=== PATIENT | female | born 1990 | race Caucasian/White ===

== ENCOUNTER → 2021-10-17 03:49 | Outpatient (CLI) | payer BC, SELFPAY ==
[2021-10-17 14:18] LABS: Influenza Control Positive
[2021-10-18 22:39] LABS: SARS-CoV-2 RNA PCR Positive
== END ==
PROVIDERS: PCP Family Medicine; Visit Provider Family Medicine
DX: J06.9 Acute upper respiratory infection, unspecified (principal); U07.1 COVID-19
CPT/HCPCS: 87804; C9803; U0003; U0005

== ENCOUNTER 2022-10-31 10:15 | Emergency (ER) | payer BC, SELFPAY ==
--- NOTE | ~2022-10-31 | XR_ITS ---
EXAMINATION: XR wrist LT min 3V DATE: 10/31/2022 11:12 INDICATION: Distal left ulna pain. TECHNIQUE: 4 views of left wrist were obtained. COMPARISON: None. FINDINGS: Bone alignment is normal. No fracture. Joint spaces are normal. IMPRESSION: 1. Normal left wrist. Reviewed, dictated and finalized at location A. CARE MANAGER IMPRESSION: 1. Normal left wrist.
[2022-10-31 10:24] VITALS: BP 136/86; PULSE 82; RESP 18; TEMP 37.6; O2SAT 100
--- NOTE | 2022-10-31 10:27 | ED.UPPEXIN ---
HPI - Extremity Injury (Upper) General Chief Complaint: Extremity Injury, Upper <Rona Segundo NP - Last Filed: 10/31/22 12:00> Stated Complaint: Left Wrist Pain <Rona Segundo NP - Last Filed: 10/31/22 12:00> Time Seen by Provider: 10/31/22 10:28 <Rona Segundo NP - Last Filed: 10/31/22 12:00> Source: patient <Rona Segundo NP - Last Filed: 10/31/22 12:00> Mode of arrival: ambulatory <ANU Pablo Last Filed: 10/31/22 12:00> Limitations: no limitations <Rona Segundo NP - Last Filed: 10/31/22 12:00> History of Present Illness HPI narrative: 32-year-old female presents with complaint of pain to left wrist since yesterday. Patient reports that while lifting a case of water out of her shopping cart into her car she felt a pop in her left wrist. Now reports pain with range of motion, such as brushing her hair, lifting anything. States with certain movement she has pain that shoots up into her left forearm. Range of motion and distal neurovascularly intact. All systems reviewed and negative except as noted above. <Rona Segundo NP - Last Filed: 10/31/22 12:00> Related Data Home Medications: Home Medications Medication Instructions Recorded Confirmed No Home Medications 10/31/22 10/31/22 <Rona Segundo NP - Last Filed: 10/31/22 12:00> Allergies/Adverse Reactions: Allergies Allergy/AdvReac Type Severity Reaction Status Date / Time latex Allergy Unknown UNKNOWN Verified 10/31/22 10:23 adhesive AdvReac Unknown IRRITATES Verified 10/31/22 10:23 SKIN,SMALLAMOUNT OF SKIN PEELING Contrast Media Allergy Severe Hives Uncoded 10/31/22 10:23 <Rona Segundo NP - Last Filed: 10/31/22 12:00> Review of Systems Review of Systems: CONSTITUTIONAL: Denies fever, chills, or sweats. EYES: Denies visual changes, redness, or discharge. ENT: Denies rhinorrhea, congestion, sore throat, or otalgia. CARDIOVASCULAR: Denies chest pain, palpitations, or edema. RESPIRATORY: Denies cough or dyspnea. GASTROINTESTINAL: Denies abdominal pain, nausea, vomiting, or diarrhea. GENITOURINARY: Denies dysuria or hematuria. SKIN: Denies rash or itching. MUSCULOSKELETAL: Reports left wrist pain. NEUROLOGIC: Denies headache, numbness, or weakness. PSYCHIATRIC: Denies anxiety or depression. All other systems reviewed are negative, except as documented in HPI. <Rona Segundo NP - Last Filed: 10/31/22 12:00> COUNTS INCLUDE 234 BEDS AT THE [facility] Past Medical History Medical History: Medical History (Updated 10/31/22 @ 11:28 by Moe Loyola, OVIDIO) Depression Encounter for HCV screening test for high risk patient Hep C positive, will screen her yearly, NEGATIVE 10/20/22 Frequency of urination [place] syndrome Migraine Migraine <Rona Segundo NP - Last Filed: 10/31/22 12:00> Surgical History Surgical History: Surgical History H/O exploratory laparotomy <Rona Segundo NP - Last Filed: 10/31/22 12:00> Family History Family History: Family History Mother Diabetes mellitus Depression Family history of bipolar disorder Hypertension Sibling Depression Father Hypertension Family history of elevated blood lipids Bile duct cancer Grandparent Family history of cardiovascular disease Cerebrovascular accident Family history of malignant neoplasm of breast in first degree relative Other JAYNE (obstructive sleep apnea) <Rona Segundo NP - Last Filed: 10/31/22 12:00> Social History Social History: Social History (Updated 09/23/22 @ 15:00 by Sofía Copeland [facility]) Smoking status: Never smoker Second hand tobacco smoke exposure: No Alcohol intake: current Alcohol use details: rare Substance use: never Substance use type: d
--- NOTE | 2022-10-31 10:35 | PC.NURSE ---
1035- RN to Rn report given to Felecia pt being sent Jesus for xray d/t no xray available here today.
== END 2022-10-31 11:33 | disposition home or self-care (01) ==
PROVIDERS: Emergency Provider Nurse Practitioner Family; PCP Family Medicine
DX: S63.502A Unspecified sprain of left wrist, initial encounter (principal); X50.0XXA Overexertion from strenuous movement or load, initial encounter; E80.4 Gilbert syndrome
CPT/HCPCS: 73110; 99213; G0463

== ENCOUNTER 2023-02-17 12:37 | Outpatient (CLI) | payer BC, SELFPAY ==
--- NOTE | ~2023-02-17 | XR_ITS ---
EXAM: XR abdomen/kub 1V DATE: 02/17/2023 12:59 HISTORY: R10.9 - Unspecified abdominal pain . COMPARISON: CT abdomen pelvis 06/27/2012. FINDINGS: Clear lung bases. Normal bowel gas pattern. No organomegaly. 3 mm calcification in the rig ht upper pole, associated with a simple cyst in the prior CT. Regional bones and soft tissues normal for age. IMPRESSION: No radiographic evidence of nephrolithiasis. Right upper pole simple renal cyst with altagracia pheral calcification. Reviewed, dictated and finalized at location K. IMPRESSION: No radiographic evidence of nephrolithiasis. Right upper pole simpl e renal cyst with peripheral calcification.
== END 2023-02-17 12:38 ==
LOC: MICIMG 12:40
PROVIDERS: PCP Physician Assistant; Visit Provider Physician Assistant
DX: R10.9 Unspecified abdominal pain (principal); N28.1 Cyst of kidney, acquired
CPT/HCPCS: 74018

== ENCOUNTER 2023-02-24 15:15 | Outpatient (CLI) | payer BC, SELFPAY ==
--- NOTE | ~2023-02-24 | CT_ITS ---
EXAMINATION: CT abdomen pelvis wo con DATE: 02/24/2023 15:30 INDICATION: Abdominal pain and bilateral flank pain. TECHNIQUE: Computed tomography (CT) of the abdomen and pelvis was performed without intravenous contr ast. Automated exposure control and iterative reconstruction technique were employed. The dose-length product was 1031.43 mGy-cm. COMPARISON: None FINDINGS: Lungs are clear. Heart size is normal. No pericardial or pleural effusion. Liver, gallbladder, spleen , pancreas, bilateral adrenal glands are normal. 1.5 cm cyst at a region of focal cortical scarring a t the upper pole of the right kidney. Additional small region of cortical scarring at the lower pole of the right kidney, both likely sequela of prior infection or infarction. 3 mm and 1 mm nonobstructi ng stones along the periphery of the cyst at the upper pole the right kidney. 1 mm nonobstructing sto ne at an upper pole calyx of the left kidney. No ureteral stones or hydronephrosis. Bladder is normal . Anteverted uterus and bilateral adnexa are unremarkable. Bowels including the appendix are normal. No free intraperitoneal gas or fluid. No pathologically enlarged abdominal or pelvic lymphadenopathy. Mild lumbar levocurvature. IMPRESSION: 1. Bilateral nonobstructing nephrolithiasis. Reviewed, dictated and finalized at location A.
== END 2023-02-24 15:16 ==
PROVIDERS: PCP Physician Assistant; Visit Provider Physician Assistant
DX: N20.0 Calculus of kidney (principal)
CPT/HCPCS: 74176

== ENCOUNTER 2025-06-02 13:01 | Emergency (ER) | payer OTHER, SELFPAY ==
--- NOTE | ~2025-06-02 | US_ITS ---
EXAMINATION: US OB <= 14 weeks fetus DATE: 06/02/2025 15:03 INDICATION: . Vaginal bleeding. TECHNIQUE: Real-time transabdominal and transvaginal obstetric ultrasound. FINDINGS: No prior studies for comparison. The uterus measures 8.4 x 5.1 x 6.5 cm. There is an intrauterine gestational sac, with pole identified. The crown rump length measures 2.3 cm, which correlates with a estimated gestational age of 9 weeks 1 day. heart tones are identified measuring 104 BPM. No evidence for subchorionic hemorrhage. There is a possible fibroid at the uterine fundus. Ovaries within normal limits. IMPRESSION: 1. SL IUP with an EGA of 9 weeks, 1 days (EDC by current ultrasound of 01/04/2026). 2: heart rate of 104 bpm which is below the expected range for this gestational age. First trimester bradycardias associated with increased risk of early loss. Reviewed, dictated and finalized at location O. IMPRESSION: 1. SL IUP with an EGA of 9 weeks, 1 days (EDC by current ultrasound of ). 2: heart rate of 104 bpm which is below the expected range for this gest ational age. First trimester bradycardias associated with increased risk of ear ly loss.
[2025-06-02 13:10] VITALS: BP 157/60; PULSE 81; RESP 16; TEMP 36.8; O2SAT 99
[2025-06-02 14:04] LABS: Hematocrit 39.3 % (37.0-47.0); Hemoglobin 13.2 g/dL (12.0-15.0); Immature Granulocyte Percent A 3.0 % (0-0.5); Lymphocytes Absolute Auto 2.41 K/mm3 (0.9-3.2); Mean Corpuscular HGB Conc 33.6 g/dl (32-36); Mean Corpuscular Hemoglobin 30.3 pg (26-34); Mean Corpuscular Volume 90.1 fl (80-100); Nucleated Red Blood Cells Absolute Auto 0.000 K/mm3 (0.0-0.012); Nucleated Red Blood Cells Perc 0.0 % (0.0-0.2); Platelet Count Result 248 k/mm3 (150-375); Red Blood Count 4.36 M/mm3 (4.2-5.4); White Blood Count 12.7 K/mm3 (4.5-10.0)
--- NOTE | 2025-06-02 14:06 | ED.GENADULT ---
HPI - General Adult General Chief complaint: Vaginal Bleeding Stated complaint: I'm 9 weeks and 5 days and I'm bleeding Time Seen by Provider: 06/02/25 13:28 History of Present Illness HPI narrative: Patient is a 34-year-old female who presents emergency department with chief complaint of vaginal bleeding. Patient reports that she is approximately 9 weeks 5 days and reports that she underwent IVF with this . Patient reports she has had an ultrasound that showed intrauterine patient reports that the bleeding was less than a normal period and is starting to taper off does report that she has had some abdominal cramping and reports that she is A positive on blood type Related Data Home Medications ?Medication ?Instructions ?Recorded ?Confirmed ?Last Taken ?Type erenumab-aooe 140 mg/mL 140 mg subcut MONTHLY 03/25/23 01/05/24 Unknown History subcutaneous auto-injector (Aimovig Autoinjector) sertraline 50 mg tablet (Zoloft) 50 mg PO DAILY 03/25/23 01/05/24 Unknown History Allergies Allergy/AdvReac Type Severity Reaction Status Date / Time rimegepant (From [facility] ODT) Allergy Severe Itching Verified 06/02/25 13:27 latex Allergy Unknown UNKNOWN Verified 06/02/25 13:27 iodine AdvReac Intermediate Dizziness Verified 06/02/25 13:27 adhesive AdvReac Unknown IRRITATES Verified 06/02/25 13:27 SKIN,SMALLAMOUNT OF SKIN PEELING Contrast Media Allergy Severe Hives Uncoded 06/02/25 13:27 Review of Systems Review of Systems: A 10 system review of systems was completed on the patient and is negative except for what is stated in the HPI. Nursing and ancillary documentation was reviewed. [facility] Past Medical History Medical History Encounter for HCV screening test for high risk patient Hep C positive, will screen her yearly, NEGATIVE 10/20/22 Migraine Frequency of urination [place] syndrome Depression Migraine Surgical History Surgical History H/O exploratory laparotomy Family History Family History Mother Diabetes mellitus Depression Family history of bipolar disorder Hypertension Sibling Depression Father Hypertension Family history of elevated blood lipids Bile duct cancer Grandparent Family history of cardiovascular disease Cerebrovascular accident Family history of malignant neoplasm of breast in first degree relative Other JAYNE (obstructive sleep apnea) Social History Social History Smoking status: Never smoker Second hand tobacco smoke exposure: No Alcohol intake: current Alcohol use details: rare Substance use: never Substance use type: does not use Lack of Transportation: No Lack of Food: Never True Current Housing: I Have Housing Concerned About Future Housing: No Difficulty Paying Gas/Electric Bills: No Difficulty Paying for Meds: No Currently Unemployed: No Education: High School Diploma/GED Difficulty w/ Childcare or Family Care: No Living arrangements: with family Occupation/Education: occupation Gender identity (if verbalized by the patient): Female Exam Narrative: GENERAL: Well-appearing, well-nourished, and in no acute distress. HEAD: Normocephalic, atraumatic. EYES: PERRLA and EOMI. ENT: Nares clear, no rhinorrhea or epistaxis. Mucous membranes moist. NECK: Supple. CHEST: Clear to auscultation. No respiratory distress. HEART: Regular rate and rhythm. No murmur heard. Normal peripheral pulses. ABDOMEN: Soft, nontender, nondistended, normal active bowel sounds. EXTREMITIES: Normal range of motion. No edema. SKIN: Warm, dry, no rash. NEURO: No focal deficits. Alert and oriented x3. PSYCH: Normal mood and affect. Course Vital Signs Vital signs: Vital Signs Temperature 36.8 C 06/02/25 13:10 Pulse Rate 81 06/02/25 13:10 Respiratory Rate 16 06/02/25 13:10 Blood Pressure 157/60 H 06/02/25 13:10 Pulse Oximetry 99 06/02/25 13:10 Oxygen Delivery Room Air 06/02/25 13:10 Temperature 36.8 C 06/02/25 13:10 Pulse Rate 81 06/02/25 13:10 Respiratory Rate 16 06/02/25 13:10 Blood Pressure 157/60 H 06/02/25 13:10 Pulse Oximetry 99 06/02/25 13:10 Oxygen Delivery Room Air 06/02/25 13:10 Medical Decision Making MDM Narrative Medical decision making narrative: Differential diagnosis includes threatened miscarriage incomplete Ultrasound showed intrauterine with good cardiac activity Patient is Rh positive Vital Signs Vital Signs: Vital Signs Temperature 36.8 C 06/02/25 13:10 Pulse Rate 81 06/02/25 13:10 Respiratory Rate 16 06/02/25 13:10 Blood Pressure 157/60 H 06/02/25 13:10 Pulse Oximetry 99 06/02/25 13:10 Oxygen Delivery Room Air 06/02/25 13:10 Temperature 36.8 C 06/02/25 13:10 Pulse Rate 81 06/02/25 13:10 Respiratory Rate 16 06/02/25 13:10 Blood Pressure 157/60 H 06/02/25 13:10 Pulse Oximetry 99 06/02/25 13:10 Oxygen Delivery Room Air 06/02/25 13:10 Lab Data 06/02/25 13:56 06/02/25 13:56 Labs: Lab Results 06/02/25 06/02/25 Range/Units 13:56 14:04 WBC 12.7 H (4.5-10.0) K/mm3 RBC 4.36 (4.2-5.4) M/mm3 Hgb 13.2 (12.0-15.0) g/dL Hct 39.3 (37.0-47.0) % MCV 90.1 (80-100) fl MCH 30.3 (26-34) pg MCHC 33.6 (32-36) g/dl RDW 12.9 (11.5-14.5) % Plt Count 248 (150-375) k/mm3 MPV 9.6 (7.4-10.4) fl Immature Gran % (Auto) 3.0 H (0-0.5) % Neut % (Auto) 71.9 (45.5-73.1) % Lymph % (Auto) 19.0 (18.3-44.2) % Johnson % (Auto) 5.7 (2.6-8.5) % Eos % (Auto) 0.2 (0-4.4) % Baso % (Auto) 0.2 (0.2-1.2) % Lymph # (Auto) 2.41 (0.9-3.2) K/mm3 Johnson # (Auto) 0.7 H (0.1-0.6) K/mm3 Eos # (Auto) 0.0 (0-0.3) K/mm3 Baso # (Auto) 0.0 (0.0-0.1) K/mm3 Abs Immat Gran (auto) 0.38 H (0.00-0.031) K/mm3 Absolute Neuts (auto) 9.1 H (1.3-6.7) K/mm3 Absolute Nucleated RBC 0.000 (0.0-0.012) K/mm3 Nucleated RBC % 0.0 (0.0-0.2) % PT 13.2 (11.1-14.7) Seconds INR 1.0 APTT 21.0 L (22.3-36.8) Seconds Sodium 136 L (137-145) mmol/L Potassium 4.0 (3.4-5.0) mmol/L Chloride 107 (98-107) mmol/L Carbon Dioxide 20 L (22-30) mmol/L Anion Gap 9 (4-12) mmol/L BUN 8 (7-17) mg/dL Creatinine 0.62 L (0.7-1.0) mg/dL Estim Creat Clear Calc 111 ml/min Estimated GFR > 60 (59 - ) Glucose 107 (65-110) mg/dL Calcium 9.1 (8.4-10.2) mg/dL Total Bilirubin 0.7 (0.2-1.3) mg/dL AST 21 (14-36) U/L ALT 24 (6-35) U/L Alkaline Phosphatase 48 (38-126) U/L Total Protein 6.6 (6.3-8.2) g/dL Albumin 3.9 (3.5-5.1) g/dL Beta HCG, Quant 01280.00 mIU/ML Blood Type A Positive Antibody Screen Negative Screen Not Reportable Baby's Blood Type Not Reportable Baby's CHET Not Reportable Doses of RhIg Required 0 Discharge Plan Discharge Clinical Impression: Threatened miscarriage Patient Disposition: Home Condition: Stable Instructions: Antibiotic Form, Threatened Miscarriage (ED) Patient Language: Nauruan Prescriptions: No Action sertraline [Zoloft] 50 mg tablet 50 mg PO DAILY Aimovig Autoinjector 140 mg/mL auto-injector 140 mg subcut MONTHLY pantoprazole 40 mg tablet,delayed release (DR/EC) 40 mg PO QAM Qty: 30 3RF ondansetron 4 mg tablet,disintegrating 4 mg PO Q8H PRN (Reason: nausea and vomiting) Qty: 40 2RF Follow-up/Referrals: Cherie,Kisha Ford MD [Primary Care Provider, Unknown] Time of Disposition: 15:57
[2025-06-02 14:15] LABS: INR 1.0; Prothrombin Time 13.2 Seconds (11.1-14.7)
[2025-06-02 14:16] LABS: Alanine Aminotransferase 24 U/L (6-35); Albumin Level 3.9 g/dL (3.5-5.1); Alkaline Phosphatase 48 U/L (38-126); Anion Gap 9 mmol/L (4-12); Aspartate Amino Transferase 21 U/L (14-36); Bilirubin,Total 0.7 mg/dL (0.2-1.3); Blood Urea Nitrogen 8 mg/dL (7-17); Calcium 9.1 mg/dL (8.4-10.2); Carbon Dioxide 20 mmol/L (22-30); Chloride 107 mmol/L (98-107); Estimated CRCL calculation 111 ml/min; Estimated Glomerular Filt Rate > 60; Glucose 107 mg/dL (65-110); Partial Thromboplastin Time 21.0 Seconds (22.3-36.8); Potassium 4.0 mmol/L (3.4-5.0); Sodium 136 mmol/L (137-145); Total Protein 6.6 g/dL (6.3-8.2)
[2025-06-02 15:46] LABS: Beta HCG Quantitative 89017.00 mIU/ML
[2025-06-02 16:06] VITALS: BP 122/76; PULSE 88; RESP 19; O2SAT 100
== END 2025-06-02 16:08 | disposition home or self-care (01) ==
PROVIDERS: Emergency Provider Emergency Medicine; PCP Student in an Organized Health Care Education/Training Program
DX: O20.0 Threatened abortion (principal); O09.511 Supervision of elderly primigravida, first trimester; O99.341 Other mental disorders complicating pregnancy, first trimester; F32.A Depression, unspecified; O99.281 Endocrine, nutritional and metabolic diseases complicating pregnancy, first trimester; E80.4 Gilbert syndrome; Z3A.09 9 weeks gestation of pregnancy; Z79.899 Other long term (current) drug therapy
CPT/HCPCS: 36415; 76801; 80053; 84702; 85025; 85461; 85610; 85730; 86850; 86900; 86901; 99284